=== PATIENT | male | born 1970 | race Caucasian/White ===

== ENCOUNTER 2022-08-19 08:32 | Inpatient (IN) | payer BC, OTHER ==
[~2022-08-19] VITALS: Ht 182.9 cm; Wt 82.2 kg
[2022-08-19] VITALS (11 sets, daily range): BP systolic 108–177; BP diastolic 65–107
[2022-08-19] MEDS: CHLORHEXIDINE GLUCONATE 0.12 % 15ML UDC (PERIDEX ORAL RINSE) MT SCH ×2 (09:00→20:39)
[2022-08-19 09:19] LABS: BASO % 0.7 % (0.0-1.0); EOS % 0.7 % (0.0-3.0); HEMATOCRIT 43.7 % (42.0-52.0); HEMOGLOBIN 14.5 g/dl (13.5-17.5); LYMPH # 2.3 10^3/uL (1.5-5.0); LYMPH % 41.8 % (24.0-44.0); MEAN CORPUSCULAR HEMOGLOBIN 28.6 pg (27.0-33.0); MEAN CORPUSCULAR HGB CONC 33.2 g/dl (32.0-36.5); MEAN CORPUSCULAR VOLUME 86.2 fl (80.0-96.0); MONO # 0.5 10^3/uL (0.0-0.8); MONO % 8.6 % (2.0-8.0); NEUTROPHILS # 2.7 10^3/uL (1.5-8.5); PLATELET COUNT, AUTOMATED 183 10^3/uL (150-450); RED BLOOD COUNT 5.07 10^6/uL (4.30-6.10); WHITE BLOOD COUNT 5.6 10^3/uL (4.0-10.0)
[2022-08-19 09:30] LABS: INR 1.21; PROTHROMBIN TIME 15.6 SECONDS (12.5-14.5)
[2022-08-19 09:46] LABS: ALBUMIN 3.5 G/DL (3.2-5.2); ALKALINE PHOSPHATASE 182 U/L (46-116); ALT/SGPT 31 U/L (7.0-40); AST/SGOT 39 U/L (<34); BILIRUBIN,DIRECT 1.2 MG/DL (<0.4); BILIRUBIN,TOTAL 1.9 MG/DL (0.3-1.2); BLOOD UREA NITROGEN 13 MG/DL (9-23); CARBON DIOXIDE LEVEL 20 MMOL/L (20-31); CHLORIDE LEVEL 106 MMOL/L (98-107); CK-MB VALUE MASS 2.9 NG/ML (<3.6); CPK CREATINE PHOSPHOKINASE 78 U/L (46-171); CREATININE FOR GFR 0.61 MG/DL (0.70-1.30); GLOMERULAR FILTRATION RATE > 60.0 (>56); GLUCOSE, FASTING 105 MG/DL (60-100); MB/CK RELATIVE INDEX 3.71 (< OR =4); POTASSIUM SERUM 3.8 MMOL/L (3.5-5.1); SODIUM LEVEL 138 MMOL/L (136-145); TOTAL PROTEIN 7.1 G/DL (5.7-8.2)
[2022-08-19 09:49] LABS: THYROID STIMULATING HORMONE 0.008 uIU/ML (0.55-4.78); THYROXINE (T4) 15.9 UG/DL (4.5-10.9)
[2022-08-19 10:21] LABS: RSV AMPLIFICATION NEGATIVE (NEGATIVE)
[2022-08-19 10:34] LABS: AMPHETAMINES LEVEL URINE NEGATIVE (NEGATIVE); BARBITURATES URINE NEGATIVE (NEGATIVE); BENZODIAZEPINES URINE NEGATIVE (NEGATIVE); CANNABINOIDS URINE NEGATIVE (NEGATIVE); COCAINE METABOLITE URINE NEGATIVE (NEGATIVE); METHADONE URINE NEGATIVE (NEGATIVE); OPIATES URINE NEGATIVE (NEGATIVE); PHENCYCLIDINE URINE NEGATIVE (NEGATIVE)
[2022-08-19] MEDS ORDERED: HYDROCORTISONE 100MG/2ML VIAL IV ONE (10:40)
[2022-08-19] MEDS ORDERED: PROPRANOLOL INJ 1MG/ML 1ML VIAL IV ONE (10:40)
[2022-08-19] MEDS ORDERED: propylthiouraciL 50 MG TAB PO ONE (11:00)
[2022-08-19] MEDS ORDERED: ISOVUE-370 76% 100ML VIAL As Ordered ONE (11:10)
[2022-08-19] MEDS ORDERED: AMOX875T2 PO (11:17)
[2022-08-19] MEDS ORDERED: ALBU8.5H INH (11:17)
[2022-08-19] MEDS ORDERED: CLAR5TAB7 PO (11:17)
[2022-08-19] MEDS ORDERED: PRIL20TA2 PO (11:17)
[2022-08-19] MEDS ORDERED: HOME MED LIST COMPLETE! XX SCH (11:20)
[2022-08-19 12:29] LABS: FREE T3 11.8 PG/ML (2.3-4.2); FREE T4 4.14 NG/DL (0.89-1.76)
[2022-08-19] MEDS ORDERED: bisoproloL fumarate 10 MG TAB PO ONE (14:00)
[2022-08-19 15:09] LABS: CK-MB VALUE MASS 2.2 NG/ML (<3.6)
[2022-08-19] MEDS: PANTOPRAZOLE 40MG VIAL IV SCH (16:19)
[2022-08-19] MEDS: FUROSEMIDE 20MG/2ML VIAL IV SCH (18:03)
[2022-08-19] MEDS: SPIRONOLACTONE 25 MG TAB PO SCH (18:04)
[2022-08-19] MEDS: ENTRESTO 24-26MG TABLET (SACUBITRIL/VALSARTAN) PO SCH (18:04)
[2022-08-19] MEDS: DAPAGLIFLOZIN PROPANEDIOL 10MG TABLET (FARXIGA) PO SCH (18:04)
[2022-08-19] MEDS: IODINE STRONG SOLN 15ML BTL PO SCH (18:05)
[2022-08-19] MEDS ORDERED: ENOXAPARIN 40MG/0.4ML SYRINGE (J1650 PER 10MG) SC SCH (21:00)
[2022-08-19] MEDS: APIXABAN 5 MG TAB (ELIQUIS) PO SCH (21:02)
[2022-08-20] VITALS (13 sets, daily range): BP systolic 85–151; BP diastolic 53–74
[2022-08-20] MEDS: IODINE STRONG SOLN 15ML BTL PO SCH ×5 (00:13→23:53)
[2022-08-20] MEDS ORDERED: METOPROLOL 5 MG/5 ML VIAL IV ONE (00:55)
[2022-08-20 04:56] LABS: BASO % 0.4 % (0.0-1.0); EOS % 0.2 % (0.0-3.0); HEMATOCRIT 39.1 % (42.0-52.0); HEMOGLOBIN 12.6 g/dl (13.5-17.5); LYMPH # 1.8 10^3/uL (1.5-5.0); LYMPH % 32.3 % (24.0-44.0); MEAN CORPUSCULAR HEMOGLOBIN 27.9 pg (27.0-33.0); MEAN CORPUSCULAR HGB CONC 32.2 g/dl (32.0-36.5); MEAN CORPUSCULAR VOLUME 86.7 fl (80.0-96.0); MONO # 0.7 10^3/uL (0.0-0.8); MONO % 12.2 % (2.0-8.0); NEUTROPHILS # 3.1 10^3/uL (1.5-8.5); NEUTROPHILS % 54.7 % (36.0-66.0); PLATELET COUNT, AUTOMATED 177 10^3/uL (150-450); RED BLOOD COUNT 4.51 10^6/uL (4.30-6.10); WHITE BLOOD COUNT 5.6 10^3/uL (4.0-10.0)
[2022-08-20 05:32] LABS: ALBUMIN 2.7 G/DL (3.2-5.2); ALKALINE PHOSPHATASE 146 U/L (46-116); ALT/SGPT 22 U/L (7.0-40); AST/SGOT 27 U/L (<34); BILIRUBIN,TOTAL 1.9 MG/DL (0.3-1.2); BLOOD UREA NITROGEN 13 MG/DL (9-23); CALCIUM LEVEL 8.5 MG/DL (8.5-10.1); CARBON DIOXIDE LEVEL 24 MMOL/L (20-31); CHLORIDE LEVEL 108 MMOL/L (98-107); CREATININE FOR GFR 0.73 MG/DL (0.70-1.30); FREE T3 6.3 PG/ML (2.3-4.2); FREE T4 3.28 NG/DL (0.89-1.76); GLOMERULAR FILTRATION RATE > 60.0 (>56); GLUCOSE, FASTING 105 MG/DL (60-100); MAGNESIUM LEVEL 1.6 MG/DL (1.8-2.4); POTASSIUM SERUM 4.2 MMOL/L (3.5-5.1); SODIUM LEVEL 139 MMOL/L (136-145); TOTAL PROTEIN 5.7 G/DL (5.7-8.2)
[2022-08-20] MEDS ORDERED: MAG SULF 1GM/100ML (MAG RUN) 1 GM in IV 1 EA IV ONE (08:00)
[2022-08-20] MEDS: PANTOPRAZOLE 40MG VIAL IV SCH (08:23)
[2022-08-20] MEDS: FUROSEMIDE 20MG/2ML VIAL IV SCH ×2 (08:24→17:05)
[2022-08-20] MEDS: SPIRONOLACTONE 25 MG TAB PO SCH (08:24)
[2022-08-20] MEDS: DAPAGLIFLOZIN PROPANEDIOL 10MG TABLET (FARXIGA) PO SCH (08:25)
[2022-08-20] MEDS: APIXABAN 5 MG TAB (ELIQUIS) PO SCH ×2 (08:25→20:19)
[2022-08-20] MEDS: ENTRESTO 24-26MG TABLET (SACUBITRIL/VALSARTAN) PO SCH ×2 (08:25→20:19)
[2022-08-20] MEDS: CHLORHEXIDINE GLUCONATE 0.12 % 15ML UDC (PERIDEX ORAL RINSE) MT SCH (08:27)
[2022-08-20] MEDS ORDERED: bisoproloL fumarate 10 MG TAB PO SCH (09:00)
[2022-08-20] MEDS ORDERED: SPIRONOLACTONE 12.5MG PER 1/2 TABLET PO SCH (09:00)
[2022-08-20] MEDS ORDERED: DIGOXIN INJ 0.5 MG/2 ML AMP IV STA (09:06)
[2022-08-20] MEDS: METOPROLOL 5 MG/5 ML VIAL IV SCH ×3 (12:05→12:15)
[2022-08-20] MEDS ORDERED: DIGOXIN 0.25 MG TAB PO ONE ×2 (13:00→17:00)
[2022-08-20] MEDS ORDERED: DIGOXIN INJ 0.5 MG/2 ML AMP IV ONE ×3 (13:00→21:00)
[2022-08-20] MEDS ORDERED: DIGOXIN INJ 0.5 MG/2 ML AMP IV SCH (15:00)
[2022-08-21] VITALS (7 sets, daily range): BP systolic 118–142; BP diastolic 59–73
[2022-08-21] MEDS ORDERED: diltiaZEM 125 MG in NS 100 ML IV SCH ×2 (02:35→03:00)
[2022-08-21 05:45] LABS: BLOOD UREA NITROGEN 12 MG/DL (9-23); CALCIUM LEVEL 7.7 MG/DL (8.5-10.1); CARBON DIOXIDE LEVEL 23 MMOL/L (20-31); CHLORIDE LEVEL 105 MMOL/L (98-107); CREATININE FOR GFR 0.63 MG/DL (0.70-1.30); GLOMERULAR FILTRATION RATE > 60.0 (>56); GLUCOSE, FASTING 110 MG/DL (60-100); POTASSIUM SERUM 3.8 MMOL/L (3.5-5.1); SODIUM LEVEL 138 MMOL/L (136-145)
[2022-08-21] MEDS: IODINE STRONG SOLN 15ML BTL PO SCH ×4 (05:46→23:57)
[2022-08-21] MEDS: PANTOPRAZOLE 40MG VIAL IV SCH (09:36)
[2022-08-21] MEDS: ENTRESTO 24-26MG TABLET (SACUBITRIL/VALSARTAN) PO SCH ×2 (09:36→21:05)
[2022-08-21] MEDS: DAPAGLIFLOZIN PROPANEDIOL 10MG TABLET (FARXIGA) PO SCH (09:37)
[2022-08-21] MEDS: bisoproloL fumarate 5 MG TAB PO SCH (09:37)
[2022-08-21] MEDS: APIXABAN 5 MG TAB (ELIQUIS) PO SCH ×2 (09:37→21:06)
[2022-08-21] MEDS: SPIRONOLACTONE 12.5MG PER 1/2 TABLET PO SCH (09:37)
[2022-08-21] MEDS: FUROSEMIDE 20MG/2ML VIAL IV SCH ×2 (09:39→16:12)
[2022-08-21] MEDS ORDERED: DIGOXIN INJ 0.5 MG/2 ML AMP IV ONE (12:00)
[2022-08-21] MEDS ORDERED: bisoproloL fumarate 5 MG TAB PO ONE (23:25)
[2022-08-22] VITALS: BP 145/82
[2022-08-22 04:00] VITALS: BP 130/77
[2022-08-22 04:52] LABS: HEMATOCRIT 41.3 % (42.0-52.0); HEMOGLOBIN 13.6 g/dl (13.5-17.5); MEAN CORPUSCULAR HEMOGLOBIN 27.8 pg (27.0-33.0); MEAN CORPUSCULAR HGB CONC 32.9 g/dl (32.0-36.5); MEAN CORPUSCULAR VOLUME 84.5 fl (80.0-96.0); PLATELET COUNT, AUTOMATED 163 10^3/uL (150-450); RED BLOOD COUNT 4.89 10^6/uL (4.30-6.10); WHITE BLOOD COUNT 7.5 10^3/uL (4.0-10.0)
[2022-08-22 05:13] LABS: BLOOD UREA NITROGEN 9 MG/DL (9-23); CALCIUM LEVEL 7.9 MG/DL (8.5-10.1); CARBON DIOXIDE LEVEL 23 MMOL/L (20-31); CHLORIDE LEVEL 106 MMOL/L (98-107); GLOMERULAR FILTRATION RATE > 60.0 (>56); GLUCOSE, FASTING 100 MG/DL (60-100); SODIUM LEVEL 138 MMOL/L (136-145)
[2022-08-22] MEDS: IODINE STRONG SOLN 15ML BTL PO SCH ×3 (05:59→17:15)
[2022-08-22] MEDS ORDERED: DIGOXIN INJ 0.5 MG/2 ML AMP IV STA (07:49)
[2022-08-22 08:00] VITALS: BP 109/81
[2022-08-22] MEDS: DAPAGLIFLOZIN PROPANEDIOL 10MG TABLET (FARXIGA) PO SCH (08:11)
[2022-08-22] MEDS: ENTRESTO 24-26MG TABLET (SACUBITRIL/VALSARTAN) PO SCH ×2 (08:11→20:59)
[2022-08-22] MEDS: FUROSEMIDE 20MG/2ML VIAL IV SCH (08:11)
[2022-08-22] MEDS: SPIRONOLACTONE 12.5MG PER 1/2 TABLET PO SCH (08:11)
[2022-08-22] MEDS: PANTOPRAZOLE 40MG VIAL IV SCH (08:12)
[2022-08-22] MEDS: bisoproloL fumarate 5 MG TAB PO SCH ×2 (08:12→20:59)
[2022-08-22] MEDS: APIXABAN 5 MG TAB (ELIQUIS) PO SCH ×2 (08:12→20:58)
[2022-08-22 08:49] LABS: DIGOXIN LEVEL 0.8 NG/ML (0.8-2.0)
[2022-08-22] MEDS: LACTOBACILLUS ACIDOPHILUS CAP (BACID) PO SCH ×2 (09:47→17:15)
[2022-08-22] MEDS: CEPHALEXIN 500 MG CAP PO SCH ×4 (09:47→20:58)
[2022-08-22] MEDS: MAGNESIUM OXIDE 400MG TAB (MAG-OX) PO SCH ×2 (10:15→20:59)
[2022-08-22] MEDS: DIGOXIN 0.25 MG TAB PO SCH (10:15)
[2022-08-22 12:00] VITALS: BP 144/70
[2022-08-22 14:02] LABS: FREE THYROXINE INDEX 7.9 % (1.4-3.8); T UPTAKE 62.2 % (22.5-37.0); THYROID STIMULATING HORMONE 0.008 uIU/ML (0.55-4.78); THYROXINE (T4) 12.7 UG/DL (4.5-10.9)
[2022-08-22 16:00] VITALS: BP 126/66
[2022-08-22 20:00] VITALS: BP_SYST 126; BP_SYST 136; BP_DIAS 66; BP_DIAS 69
[2022-08-23] VITALS: BP 144/78
[2022-08-23] MEDS: IODINE STRONG SOLN 15ML BTL PO SCH ×2 (00:12→06:23)
[2022-08-23 04:00] VITALS: BP 140/85
[2022-08-23 05:29] LABS: BLOOD UREA NITROGEN 11 MG/DL (9-23); CALCIUM LEVEL 8.4 MG/DL (8.5-10.1); CARBON DIOXIDE LEVEL 22 MMOL/L (20-31); CHLORIDE LEVEL 106 MMOL/L (98-107); GLOMERULAR FILTRATION RATE > 60.0 (>56); GLUCOSE, FASTING 105 MG/DL (60-100); POTASSIUM SERUM 4.2 MMOL/L (3.5-5.1); SODIUM LEVEL 136 MMOL/L (136-145)
[2022-08-23] MEDS: DAPAGLIFLOZIN PROPANEDIOL 10MG TABLET (FARXIGA) PO SCH (08:39)
[2022-08-23 08:40] VITALS: BP 122/62
[2022-08-23 08:41] VITALS: BP 122/62
[2022-08-23] MEDS: bisoproloL fumarate 5 MG TAB PO SCH (08:41)
[2022-08-23] MEDS: LACTOBACILLUS ACIDOPHILUS CAP (BACID) PO SCH (08:41)
[2022-08-23] MEDS: DIGOXIN 0.25 MG TAB PO SCH (08:42)
[2022-08-23] MEDS: SPIRONOLACTONE 12.5MG PER 1/2 TABLET PO SCH (08:42)
[2022-08-23] MEDS: MAGNESIUM OXIDE 400MG TAB (MAG-OX) PO SCH (08:42)
[2022-08-23] MEDS: APIXABAN 5 MG TAB (ELIQUIS) PO SCH (08:42)
[2022-08-23] MEDS: CEPHALEXIN 500 MG CAP PO SCH ×2 (08:42→13:32)
[2022-08-23] MEDS: ENTRESTO 24-26MG TABLET (SACUBITRIL/VALSARTAN) PO SCH (08:42)
[2022-08-23] MEDS ORDERED: TORSEMIDE 10 MG TABLET PO SCH (09:00)
[2022-08-23] MEDS ORDERED: PANTOPRAZOLE 40MG TAB (PROTONIX) PO SCH (09:00)
[2022-08-23 09:38] LABS: BASO # 0.1 10^3/uL (0.0-0.2); BASO % 0.7 % (0.0-1.0); EOS # 0.1 10^3/uL (0.0-0.5); EOS % 1.9 % (0.0-3.0); HEMATOCRIT 43.1 % (42.0-52.0); HEMOGLOBIN 14.1 g/dl (13.5-17.5); LYMPH # 2.4 10^3/uL (1.5-5.0); LYMPH % 32.7 % (24.0-44.0); MEAN CORPUSCULAR HEMOGLOBIN 28.1 pg (27.0-33.0); MEAN CORPUSCULAR HGB CONC 32.7 g/dl (32.0-36.5); MEAN CORPUSCULAR VOLUME 85.9 fl (80.0-96.0); MONO # 0.8 10^3/uL (0.0-0.8); MONO % 11.1 % (2.0-8.0); NEUTROPHILS # 3.9 10^3/uL (1.5-8.5); NEUTROPHILS % 53.5 % (36.0-66.0); PLATELET COUNT, AUTOMATED 187 10^3/uL (150-450); RED BLOOD COUNT 5.02 10^6/uL (4.30-6.10); WHITE BLOOD COUNT 7.2 10^3/uL (4.0-10.0)
[2022-08-23 10:12] LABS: ALBUMIN 2.7 G/DL (3.2-5.2); ALKALINE PHOSPHATASE 152 U/L (46-116); ALT/SGPT 19 U/L (7.0-40); AST/SGOT 21 U/L (<34); BILIRUBIN,DIRECT 0.9 MG/DL (<0.4); BILIRUBIN,TOTAL 1.7 MG/DL (0.3-1.2); FREE T4 1.88 NG/DL (0.89-1.76); TOTAL PROTEIN 6.1 G/DL (5.7-8.2)
[2022-08-23] MEDS ORDERED: DIGO0.253 PO (12:42)
[2022-08-23] MEDS ORDERED: BISO5TAB14 PO (12:42)
[2022-08-23] MEDS ORDERED: ELIQ5TAB PO (12:42)
[2022-08-23] MEDS ORDERED: FARX1TAB3 PO (12:42)
[2022-08-23] MEDS ORDERED: METH25TAB PO (12:43)
[2022-08-23] MEDS ORDERED: CEPH500C PO (12:43)
[2022-08-23] MEDS ORDERED: ALDA25TA2 PO (12:43)
[2022-08-23] MEDS ORDERED: ENTR1TAB PO (12:43)
== END 2022-08-23 13:50 | disposition home or self-care (01) | DRG 424 ==
LOC: M ED 08:32 → M ED INP 11:12 → M ICU 13:30
PROVIDERS: ADMIT Internal Medicine Critical Care Medicine; ATTEND Internal Medicine
PROC: B246ZZZ Ultrasonography of Right and Left Heart (ICD-10-PCS; principal; 2022-08-20)
DX: E05.01 Thyrotoxicosis with diffuse goiter with thyrotoxic crisis or storm (principal); I50.21 Acute systolic (congestive) heart failure; I42.0 Dilated cardiomyopathy; I95.9 Hypotension, unspecified; I48.19 Other persistent atrial fibrillation; K21.9 Gastro-esophageal reflux disease without esophagitis; J45.909 Unspecified asthma, uncomplicated; Z87.891 Personal history of nicotine dependence; Z79.899 Other long term (current) drug therapy

== ENCOUNTER → 2022-08-30 | Outpatient (REF) | payer OTHER ==
[~2022-08-30] MED LIST: ALBU8.5H INH; ALDA25TA2 PO; AMOX875T2 PO; BISO5TAB14 PO; CEPH500C PO; CLAR5TAB7 PO; DIGO0.253 PO; ELIQ5TAB PO; ENTR1TAB PO; FARX1TAB3 PO; METH25TAB PO; PRIL20TA2 PO
[2022-08-30 12:00] LABS: BASO # 0.1 10^3/uL (0.0-0.2); BASO % 1.3 % (0.0-1.0); EOS # 0.1 10^3/uL (0.0-0.5); EOS % 2.4 % (0.0-3.0); HEMATOCRIT 49.2 % (42.0-52.0); HEMOGLOBIN 15.7 g/dl (13.5-17.5); LYMPH % 43.1 % (24.0-44.0); MEAN CORPUSCULAR HEMOGLOBIN 27.3 pg (27.0-33.0); MEAN CORPUSCULAR HGB CONC 31.9 g/dl (32.0-36.5); MEAN CORPUSCULAR VOLUME 85.6 fl (80.0-96.0); MONO # 0.5 10^3/uL (0.0-0.8); MONO % 10.9 % (2.0-8.0); NEUTROPHILS % 42.1 % (36.0-66.0); PLATELET COUNT, AUTOMATED 290 10^3/uL (150-450); RED BLOOD COUNT 5.75 10^6/uL (4.30-6.10); WHITE BLOOD COUNT 4.7 10^3/uL (4.0-10.0)
[2022-08-30 12:26] LABS: DIGOXIN LEVEL 1.3 NG/ML (0.8-2.0)
[2022-08-30 12:28] LABS: FREE T3 5.1 PG/ML (2.3-4.2); FREE T4 1.43 NG/DL (0.89-1.76)
[2022-09-01 01:23] LABS: THYROID STIMULATING HORMONE 0.008 uIU/ML (0.55-4.78)
== END ==
LOC: M SFHCCLAY 08:55
PROVIDERS: ATTEND Family Medicine
DX: I50.20 Unspecified systolic (congestive) heart failure (principal); E05.81 Other thyrotoxicosis with thyrotoxic crisis or storm; I80.9 Phlebitis and thrombophlebitis of unspecified site

== ENCOUNTER → 2022-08-30 | Outpatient (REF) | payer OTHER ==
[2022-08-30 12:04] LABS: ALBUMIN 3.3 G/DL (3.2-5.2); ALKALINE PHOSPHATASE 169 U/L (46-116); ALT/SGPT 22 U/L (7.0-40); AST/SGOT 21 U/L (<34); BILIRUBIN,TOTAL 0.6 MG/DL (0.3-1.2); BLOOD UREA NITROGEN 10 MG/DL (9-23); CALCIUM LEVEL 9.1 MG/DL (8.5-10.1); CARBON DIOXIDE LEVEL 24 MMOL/L (20-31); CHLORIDE LEVEL 109 MMOL/L (98-107); CREATININE FOR GFR 0.63 MG/DL (0.70-1.30); GLOMERULAR FILTRATION RATE > 60.0 (>56); GLUCOSE, FASTING 96 MG/DL (60-100); POTASSIUM SERUM 4.2 MMOL/L (3.5-5.1); SODIUM LEVEL 139 MMOL/L (136-145); TOTAL PROTEIN 7.4 G/DL (5.7-8.2)
[2022-08-30 12:07] LABS: THYROID STIMULATING HORMONE 0.008 uIU/ML (0.55-4.78)
== END ==
LOC: M LABDRAWC 11:28
PROVIDERS: ATTEND Internal Medicine
DX: Z00.00 Encounter for general adult medical examination without abnormal findings (principal)

== ENCOUNTER → 2022-09-20 | Outpatient (REF) | payer OTHER ==
[2022-09-20 12:10] LABS: THYROID STIMULATING HORMONE 0.008 uIU/ML (0.55-4.78)
[2022-09-20 12:11] LABS: FREE T3 4.1 PG/ML (2.3-4.2); FREE T4 0.96 NG/DL (0.89-1.76)
== END ==
LOC: M SFHCCLAY 07:08
PROVIDERS: ATTEND Family Medicine
DX: E05.81 Other thyrotoxicosis with thyrotoxic crisis or storm (principal); I50.20 Unspecified systolic (congestive) heart failure; I80.9 Phlebitis and thrombophlebitis of unspecified site

== ENCOUNTER → 2022-09-26 | Outpatient (REF) | payer OTHER ==
[2022-09-26 11:58] LABS: ALBUMIN 3.5 G/DL (3.2-5.2); BLOOD UREA NITROGEN 7 MG/DL (9-23); CALCIUM LEVEL 8.7 MG/DL (8.5-10.1); CARBON DIOXIDE LEVEL 26 MMOL/L (20-31); CHLORIDE LEVEL 107 MMOL/L (98-107); CREATININE FOR GFR 0.64 MG/DL (0.70-1.30); GLOMERULAR FILTRATION RATE > 60.0 (>56); GLUCOSE, FASTING 93 MG/DL (60-100); PHOSPHORUS LEVEL 2.4 MG/DL (2.5-4.9); SODIUM LEVEL 138 MMOL/L (136-145)
== END ==
LOC: M LABDRAWC 11:09
PROVIDERS: ATTEND Internal Medicine Cardiovascular Disease
DX: I50.42 Chronic combined systolic (congestive) and diastolic (congestive) heart failure (principal)

== ENCOUNTER → 2022-11-07 | Outpatient (REF) | payer OTHER ==
[2022-11-07 18:48] LABS: FREE T4 1.81 NG/DL (0.89-1.76); TOTAL T3 221.4 NG/DL (60.0-181.0)
[2022-11-07 18:49] LABS: THYROID STIMULATING HORMONE 0.008 uIU/ML (0.55-4.78)
== END ==
LOC: M LABDRAWC 17:38
PROVIDERS: ATTEND Nurse Practitioner Family
DX: E05.00 Thyrotoxicosis with diffuse goiter without thyrotoxic crisis or storm (principal)

== ENCOUNTER → 2022-11-14 | Outpatient (REF) | payer OTHER ==
[2022-11-14 12:22] LABS: BLOOD UREA NITROGEN 11 MG/DL (9-23); CALCIUM LEVEL 8.8 MG/DL (8.5-10.1); CARBON DIOXIDE LEVEL 26 MMOL/L (20-31); CHLORIDE LEVEL 108 MMOL/L (98-107); CREATININE FOR GFR 0.67 MG/DL (0.70-1.30); GLOMERULAR FILTRATION RATE > 60.0 (>56); GLUCOSE, FASTING 91 MG/DL (60-100); POTASSIUM SERUM 4.4 MMOL/L (3.5-5.1); SODIUM LEVEL 141 MMOL/L (136-145)
== END ==
LOC: M LABDRAWC 11:15
PROVIDERS: ATTEND Internal Medicine Cardiovascular Disease
DX: I50.42 Chronic combined systolic (congestive) and diastolic (congestive) heart failure (principal)

== ENCOUNTER → 2022-12-09 | Outpatient (REF) | payer OTHER ==
[2022-12-09 19:30] LABS: FREE T4 2.26 NG/DL (0.89-1.76); THYROID STIMULATING HORMONE 0.008 uIU/ML (0.55-4.78); TOTAL T3 323.2 NG/DL (60.0-181.0)
== END ==
LOC: M LABDRAWC 17:08
PROVIDERS: ATTEND Internal Medicine Endocrinology, Diabetes & Metabolism
DX: E05.00 Thyrotoxicosis with diffuse goiter without thyrotoxic crisis or storm (principal)

== ENCOUNTER → 2023-04-05 | Outpatient (REF) | payer BC, OTHER ==
[2023-04-05 12:47] LABS: FREE T3 3.6 PG/ML (2.3-4.2); FREE T4 0.95 NG/DL (0.89-1.76); THYROID STIMULATING HORMONE 0.012 uIU/ML (0.55-4.78)
== END ==
LOC: M SFHCCLAY 09:01
PROVIDERS: ATTEND Family Medicine
DX: E05.00 Thyrotoxicosis with diffuse goiter without thyrotoxic crisis or storm (principal)

== ENCOUNTER → 2023-05-01 | Outpatient (REF) | payer BC, OTHER ==
[2023-05-01 19:42] LABS: THYROID STIMULATING HORMONE 0.008 uIU/ML (0.55-4.78)
[2023-05-01 19:44] LABS: FREE T4 4.59 NG/DL (0.89-1.76)
[2023-05-01 19:46] LABS: TOTAL T3 415.4 NG/DL (60.0-181.0)
== END ==
LOC: M LABDRAWC 17:06
PROVIDERS: ATTEND Nurse Practitioner Family
DX: E05.00 Thyrotoxicosis with diffuse goiter without thyrotoxic crisis or storm (principal)

== ENCOUNTER → 2023-05-30 | Outpatient (REF) | payer BC, OTHER ==
[2023-05-30 17:59] LABS: FREE T4 3.23 NG/DL (0.89-1.76); THYROID STIMULATING HORMONE 0.008 uIU/ML (0.55-4.78)
== END ==
LOC: M LABDRAWC 17:02
PROVIDERS: ATTEND Internal Medicine Endocrinology, Diabetes & Metabolism
DX: E05.00 Thyrotoxicosis with diffuse goiter without thyrotoxic crisis or storm (principal)

== ENCOUNTER → 2023-07-07 | Outpatient (REF) | payer BC, OTHER ==
[2023-07-07 18:54] LABS: FREE T4 0.33 NG/DL (0.89-1.76); THYROID STIMULATING HORMONE 0.656 uIU/ML (0.55-4.78)
== END ==
LOC: M LABDRAWC 17:17
PROVIDERS: ATTEND Nurse Practitioner Family
DX: E05.00 Thyrotoxicosis with diffuse goiter without thyrotoxic crisis or storm (principal)

== ENCOUNTER → 2023-08-02 | Outpatient (REF) | payer BC, OTHER ==
[2023-08-02 11:38] LABS: HEMATOCRIT 49.5 % (42.0-52.0); HEMOGLOBIN 17.3 g/dl (13.5-17.5); MEAN CORPUSCULAR HEMOGLOBIN 31.1 pg (27.0-33.0); MEAN CORPUSCULAR HGB CONC 34.9 g/dl (32.0-36.5); PLATELET COUNT, AUTOMATED 153 10^3/uL (150-450); RED BLOOD COUNT 5.56 10^6/uL (4.30-6.10); WHITE BLOOD COUNT 4.1 10^3/uL (4.0-10.0)
== END ==
LOC: M LABDRAWC 11:10
PROVIDERS: ATTEND Physician Assistant
DX: I48.0 Paroxysmal atrial fibrillation (principal); Z13.220 Encounter for screening for lipoid disorders; I50.42 Chronic combined systolic (congestive) and diastolic (congestive) heart failure

== ENCOUNTER → 2023-08-16 | Outpatient (REF) | payer BC, OTHER ==
[2023-08-16 16:31] LABS: ALBUMIN 3.8 G/DL (3.2-5.2); ALKALINE PHOSPHATASE 100 U/L (46-116); ALT/SGPT 43 U/L (7.0-40); AST/SGOT 25 U/L (<34); BILIRUBIN,TOTAL 0.7 MG/DL (0.3-1.2); BLOOD UREA NITROGEN 12 MG/DL (9-23); CALCIUM LEVEL 8.3 MG/DL (8.5-10.1); CARBON DIOXIDE LEVEL 24 MMOL/L (20-31); CHLORIDE LEVEL 109 MMOL/L (98-107); CHOLESTEROL LEVEL 156 MG/DL (<200); CHOLESTEROL RISK RATIO 3.45 (<5); CREATININE FOR GFR 0.78 MG/DL (0.70-1.30); GLOMERULAR FILTRATION RATE > 60.0 (>56); GLUCOSE, FASTING 108 MG/DL (60-100); HDL CHOLESTEROL 45.2 MG/DL (>40); LDL CHOLESTEROL 86.4 MG/DL (<100); NON-HDL-C 110.8 MG/DL; POTASSIUM SERUM 3.8 MMOL/L (3.5-5.1); SODIUM LEVEL 142 MMOL/L (136-145); TOTAL PROTEIN 7.1 G/DL (5.7-8.2); TRIGLYCERIDES LEVEL 122 MG/DL (<150)
== END ==
LOC: M LABDRAWC 12:22
PROVIDERS: ATTEND Physician Assistant
DX: I48.0 Paroxysmal atrial fibrillation (principal); I50.42 Chronic combined systolic (congestive) and diastolic (congestive) heart failure; Z13.220 Encounter for screening for lipoid disorders

== ENCOUNTER → 2023-09-12 | Outpatient (REF) | payer BC, OTHER ==
[2023-09-12 18:59] LABS: FREE T4 1.78 NG/DL (0.89-1.76); THYROID STIMULATING HORMONE 0.011 uIU/ML (0.55-4.78)
== END ==
LOC: M LABDRAWC 17:41
PROVIDERS: ATTEND Nurse Practitioner Family
DX: E05.00 Thyrotoxicosis with diffuse goiter without thyrotoxic crisis or storm (principal)

== ENCOUNTER → 2023-11-13 | Outpatient (REF) | payer BC, OTHER ==
[2023-11-13 19:21] LABS: FREE T4 1.71 NG/DL (0.89-1.76)
[2023-11-13 19:22] LABS: THYROID STIMULATING HORMONE 0.015 uIU/ML (0.55-4.78)
== END ==
LOC: M LABDRAWC 17:18
PROVIDERS: ATTEND Nurse Practitioner Family
DX: E05.00 Thyrotoxicosis with diffuse goiter without thyrotoxic crisis or storm (principal)

== ENCOUNTER → 2023-12-04 | Outpatient (CLI) | payer BC ==
[2023-12-04 11:15] LABS: BLOOD UREA NITROGEN 6 MG/DL (9-23); CALCIUM LEVEL 8.8 MG/DL (8.5-10.1); CARBON DIOXIDE LEVEL 27 MMOL/L (20-31); CHLORIDE LEVEL 108 MMOL/L (98-107); CREATININE FOR GFR 0.86 MG/DL (0.70-1.30); GLOMERULAR FILTRATION RATE > 60.0 (>56); GLUCOSE, FASTING 86 MG/DL (60-100); POTASSIUM SERUM 3.8 MMOL/L (3.5-5.1); SODIUM LEVEL 143 MMOL/L (136-145)
== END ==
LOC: M LAB 09:54
PROVIDERS: ATTEND Physician Assistant
DX: I50.42 Chronic combined systolic (congestive) and diastolic (congestive) heart failure (principal)

== ENCOUNTER → 2024-02-20 | Outpatient (REF) | payer BC ==
[2024-02-20 19:28] LABS: FREE T4 1.58 NG/DL (0.89-1.76); THYROID STIMULATING HORMONE 0.008 uIU/ML (0.55-4.78)
== END ==
LOC: M LABDRAWC 17:56
PROVIDERS: ATTEND Nurse Practitioner Family
DX: E89.0 Postprocedural hypothyroidism (principal)

== ENCOUNTER → 2024-05-13 | Outpatient (REF) | payer BC ==
[~2024-05-13] MED LIST changes: +METH-1386 PO; -METH25TAB PO
[2024-05-13 12:30] LABS: FREE T4 1.55 NG/DL (0.89-1.76); THYROID STIMULATING HORMONE 0.014 uIU/ML (0.55-4.78)
== END ==
LOC: M LABDRAWC 11:06
PROVIDERS: ATTEND Nurse Practitioner Family
DX: E89.0 Postprocedural hypothyroidism (principal)

== ENCOUNTER → 2024-06-17 | Outpatient (REF) | payer BC ==
[2024-06-17 12:20] LABS: HEMATOCRIT 48.1 % (42.0-52.0); HEMOGLOBIN 16.6 g/dl (13.5-17.5); MEAN CORPUSCULAR HEMOGLOBIN 31.4 pg (27.0-33.0); MEAN CORPUSCULAR HGB CONC 34.5 g/dl (32.0-36.5); MEAN CORPUSCULAR VOLUME 91.1 fl (80.0-96.0); PLATELET COUNT, AUTOMATED 187 10^3/uL (150-450); RED BLOOD COUNT 5.28 10^6/uL (4.30-6.10); WHITE BLOOD COUNT 4.5 10^3/uL (4.0-10.0)
[2024-06-17 12:29] LABS: ALKALINE PHOSPHATASE 70 U/L (40-129); ALT/SGPT 32 U/L (7.0-40); AST/SGOT 30 U/L (<34); BILIRUBIN,TOTAL 0.8 MG/DL (0.3-1.2); BLOOD UREA NITROGEN 10 MG/DL (9-23); CALCIUM LEVEL 8.8 MG/DL (8.5-10.1); CARBON DIOXIDE LEVEL 22 MMOL/L (20-31); CHLORIDE LEVEL 108 MMOL/L (98-107); CHOLESTEROL LEVEL 204 MG/DL (<200); CHOLESTEROL RISK RATIO 3.58 (<5); CREATININE FOR GFR 0.92 MG/DL (0.70-1.30); GLOMERULAR FILTRATION RATE > 60.0 (>56); GLUCOSE, FASTING 96 MG/DL (60-100); HDL CHOLESTEROL 56.9 MG/DL (>40); LDL CHOLESTEROL 116.7 MG/DL (<100); MAGNESIUM LEVEL 1.9 MG/DL (1.8-2.4); NON-HDL-C 147.1 MG/DL; SODIUM LEVEL 142 MMOL/L (136-145); TOTAL PROTEIN 7.4 G/DL (5.7-8.2); TRIGLYCERIDES LEVEL 152 MG/DL (<150)
== END ==
LOC: M LABDRAWC 11:21
PROVIDERS: ATTEND Physician Assistant
DX: I50.42 Chronic combined systolic (congestive) and diastolic (congestive) heart failure (principal); I48.0 Paroxysmal atrial fibrillation; I42.0 Dilated cardiomyopathy; Z13.220 Encounter for screening for lipoid disorders

== ENCOUNTER → 2024-08-09 | Outpatient (REF) | payer BC ==
[2024-08-09 19:41] LABS: FREE T4 1.32 NG/DL (0.89-1.76); THYROID STIMULATING HORMONE 0.134 uIU/ML (0.55-4.78)
== END ==
LOC: M LABDRAWC 13:05
PROVIDERS: ATTEND Nurse Practitioner Family
DX: E89.0 Postprocedural hypothyroidism (principal)

== ENCOUNTER → 2024-08-09 | Outpatient (REF) | payer BC | LOC: M SFHCCLAY 13:02 | PROVIDERS: ATTEND Family Medicine | DX: R25.2 Cramp and spasm (principal) ==

== ENCOUNTER → 2024-12-09 | Outpatient (REF) | payer BC ==
[2024-12-09 19:42] LABS: FREE T4 1.51 NG/DL (0.89-1.76)
== END ==
LOC: M LABDRAWC 17:21
PROVIDERS: ATTEND Nurse Practitioner Family
DX: E89.0 Postprocedural hypothyroidism (principal)

== ENCOUNTER → 2024-12-09 | Outpatient (REF) | payer BC ==
[2024-12-09 19:40] LABS: CALCIUM LEVEL 9.3 MG/DL (8.5-10.1); CARBON DIOXIDE LEVEL 26.0 MMOL/L (20-31); CHLORIDE LEVEL 103.0 MMOL/L (98-107); CREATININE FOR GFR 1.08 MG/DL (0.70-1.30); GLOMERULAR FILTRATION RATE 81.6 (>56); MAGNESIUM LEVEL 1.8 MG/DL (1.8-2.4); POTASSIUM SERUM 3.9 MMOL/L (3.5-5.1); SODIUM LEVEL 141.0 MMOL/L (136-145)
== END ==
LOC: M LABDRAWC 17:23
PROVIDERS: ATTEND Physician Assistant
DX: I50.42 Chronic combined systolic (congestive) and diastolic (congestive) heart failure (principal)